=== PATIENT | female | born 1995 | race Caucasian/White ===

== ENCOUNTER → 2019-11-21 16:15 | Outpatient (CLI) | payer OTHER, SELFPAY ==
[2019-11-21 14:47] VITALS: BMI 24.0
[2019-11-21 18:46] LABS: Chlamydia Trachomatis by PCR Negative (Negative); Neisserai gonorrhoeae by PCR Negative (Negative); Probe Check PASS; Sample Adequacy Control PASS; Specimen Processing Control PASS
[2019-11-28 00:35] LABS: HPV Reflexed? NOT INDICATED
== END ==
PROVIDERS: Referring Provider Nurse Practitioner Women's Health; Visit Provider Nurse Practitioner Women's Health
DX: Z12.4 Encounter for screening for malignant neoplasm of cervix (principal); Z11.3 Encounter for screening for infections with a predominantly sexual mode of transmission
CPT/HCPCS: 87491; 87591; 88175; G0145

== ENCOUNTER → 2021-09-24 | Outpatient (CLI) | payer BC, SELFPAY ==
[2021-09-26 01:08] LABS: Chlamydia By Nucleic Acid AMP Negative (Negative)
[2021-09-26 13:46] LABS: Gonococcus By Nucleic Acid AMP Negative (Negative)
== END | disposition home or self-care (01) ==
LOC: LABSPEC 09-25 06:27
PROVIDERS: Referring Provider Obstetrics & Gynecology; Visit Provider Obstetrics & Gynecology
DX: Z34.00 Encounter for supervision of normal first pregnancy, unspecified trimester (principal)
CPT/HCPCS: 87491; 87591

== ENCOUNTER → 2021-09-29 | Outpatient (CLI) | payer BC, SELFPAY ==
[2021-09-29 10:38] LABS: Absolute Lymphocyte Count 0.93 X10^3/uL (0.83-4.51); Basophil# 0.02 X10^3/uL; Basophil% 0.4 % (0-1); Eosinophil# 0.03 X10^3/uL; Eosinophils% 0.6 % (0-5); Hematocrit 37.3 % (37-47); Hemoglobin 12.3 g/dL (12.0-15.0); Lymphocyte # 0.93 X10^3/ul (0.83-4.51); Lymphocyte % 17.5 % (19-41); Mean Corpuscular Hgb 30.1 pg (27.0-32.0); Mean Corpuscular Volume 91.4 fL (81-99); Mean Platelet Vol. 10.9 fl (6.2-12.0); Monocyte# 0.34 X10^3/uL; Monocyte% 6.4 % (0-10); NRBC Flagged by Analyzer 0 % (0-5); Neutrophil # 3.97 X10^3/uL (2.7-7.7); Neutrophil % 74.9 % (47-70); Platelet Count 250 K/mm3 (150-450); RBC Distribution Width CV 12.3 % (11.6-14.6); RBC Distribution Width SD 41.2 fl (35.1-43.9); Red Blood Count 4.08 M/mm3 (4.2-5.4); White Blood Count 5.3 K/mm3 (4.4-11.0)
[2021-09-29 10:54] LABS: NATERA MAILED SPECIMEN
[2021-09-29 12:06] LABS: HIV - WCH Non-Reactive (Nonreactive); Hepatitis B Surface Antigen Non-Reactive (Nonreactive); Hepatitis C Antibody Non-Reactive (Nonreactive); Rubella IgG Reactive (Nonreactive); Syphilis Antibodies Non-reactive
== END | disposition home or self-care (01) ==
LOC: LAB 09:50
PROVIDERS: Referring Provider Obstetrics & Gynecology; Visit Provider Obstetrics & Gynecology
DX: Z34.81 Encounter for supervision of other normal pregnancy, first trimester (principal)
CPT/HCPCS: 36415; 85025; 86703; 86762; 86780; 86803; 86850; 86900; 86901; 87340

== ENCOUNTER → 2021-10-21 | Outpatient (CLI) | payer BC, SELFPAY ==
[2021-10-21 11:22] LABS: Amphetamine Urine VISTA NEGATIVE (<1000 ng/mL); Barbiturate Urine VISTA NEGATIVE (< 200 ng/mL); Benzodiazepine Urine VISTA NEGATIVE (< 200 ng/mL); Cocaine Urine VISTA NEGATIVE (< 300 ng/mL); Ecstacy Urine VISTA NEGATIVE (< 500 ng/mL); Methadone Urine VISTA NEGATIVE (< 300 ng/mL); PCP Urine VISTA NEGATIVE (< 25 ng/mL); THC Urine VISTA NEGATIVE (< 50 ng/mL); Vista UDS pH Range 7
== END | disposition home or self-care (01) ==
LOC: LABSPEC 10-22 09:53
PROVIDERS: Visit Provider Obstetrics & Gynecology
DX: Z34.00 Encounter for supervision of normal first pregnancy, unspecified trimester (principal)
CPT/HCPCS: 80307; 87086; 87088

== ENCOUNTER → 2021-11-18 | Outpatient (CLI) | payer BC, SELFPAY | END | disposition home or self-care (01) | LOC: LABSPEC 12:15 | PROVIDERS: Visit Provider Nurse Practitioner Women's Health | DX: Z34.90 Encounter for supervision of normal pregnancy, unspecified, unspecified trimester (principal) | CPT/HCPCS: 87086; 87088 ==

== ENCOUNTER → 2022-01-01 | Outpatient (CLI) | payer BC, SELFPAY ==
--- NOTE | 2022-01-01 15:33 | US_ITS ---
STUDY: SECOND AND THIRD TRIMESTER OBSTETRICAL ULTRASOUND - LIMITED REASON FOR EXAM: Female, 26 years old. growth and cervical length PRIOR ULTRASOUND: Prior comparison studies are not available for review at this time. TECHNIQUE: Transabdominal and Transvaginal TECHNICAL QUALITY: Adequate. FINDINGS: There is a single intrauterine fetus. The fetus is in a cephalic presentation. There is demonstrated cardiac activity with a heart rate of 160 bpm. There is a normal amniotic fluid volume. The largest amniotic fluid pocket measures 8.7 cm. The placenta is anterior in location and is not low lying. There are Grade 1 placental changes. The cervix measures cm in length: 3.4. BIOMETRY: BPD: 59 mm: 24 weeks, 1 days HC: 229 mm: 25 weeks, 0 days AC: 216 mm: 25 weeks, 0 days FL: 43 mm: 24 weeks, 0 days CI: 77 FL/AC: 20 FL/BPD: 72 HC/AC: 1.13 age by current US: 24 weeks, 2 days. DULCE by current US: 12.6.22. Estimated weight: 702 grams, +/- 107 grams, 47 %. Age by LMP: 24 weeks, 3 days. DULCE by LMP: 12.5.22. US/OB Limited With Biometrics IMPRESSION: There is a single live intrauterine with a heart rate of 160 bpm. age by current US: 24 weeks, 2 days. DULCE by current US: 12.6.22. Estimated weight: 702 grams, +/- 107 grams, 47 %. The cervix measures cm in length: 3.4. Electronically Signed: Malik Harris MD at 16:36 EDT ,
== END | disposition home or self-care (01) ==
PROVIDERS: Referring Provider Obstetrics & Gynecology; Visit Provider Obstetrics & Gynecology
DX: O26.892 Other specified pregnancy related conditions, second trimester (principal); Z3A.24 24 weeks gestation of pregnancy
CPT/HCPCS: 76816

== ENCOUNTER → 2022-01-29 | Outpatient (CLI) | payer BC, SELFPAY ==
[2022-01-29 10:10] LABS: Absolute Lymphocyte Count 1.35 X10^3/uL (0.83-4.51); Absolute Neutrophil Count 7.3 X10^3/uL (2.0-7.7); Basophil# 0.03 X10^3/uL; Basophil% 0.3 % (0-1); Eosinophil# 0.08 X10^3/uL; Eosinophils% 0.9 % (0-5); Hematocrit 36.9 % (37-47); Hemoglobin 12.6 g/dL (12.0-15.0); Lymphocyte # 1.35 X10^3/ul (0.83-4.51); Lymphocyte % 14.4 % (19-41); Mean Corp Hgb Conc 34.1 g/dL (32-36); Mean Corpuscular Hgb 31.8 pg (27.0-32.0); Mean Corpuscular Volume 93.2 fL (81-99); Mean Platelet Vol. 10.5 fl (6.2-12.0); Monocyte# 0.58 X10^3/uL; Monocyte% 6.2 % (0-10); NRBC Flagged by Analyzer 0 % (0-5); Neutrophil # 7.27 X10^3/uL (2.7-7.7); Neutrophil % 77.7 % (47-70); Platelet Count 262 K/mm3 (150-450); RBC Distribution Width CV 12.5 % (11.6-14.6); RBC Distribution Width SD 42.9 fl (35.1-43.9); Red Blood Count 3.96 M/mm3 (4.2-5.4); White Blood Count 9.4 K/mm3 (4.4-11.0)
[2022-01-29 10:27] LABS: Glucose Challenge Gest 1H 50g 77 mg/dL (70-140)
== END | disposition home or self-care (01) ==
LOC: PAVLAB 10:00
PROVIDERS: Referring Provider Obstetrics & Gynecology; Visit Provider Obstetrics & Gynecology
DX: Z13.1 Encounter for screening for diabetes mellitus (principal); Z3A.24 24 weeks gestation of pregnancy
CPT/HCPCS: 36415; 82950; 85025

== ENCOUNTER → 2022-03-23 | Outpatient (CLI) | payer BC, MEDICAID, SELFPAY | END | disposition home or self-care (01) | LOC: LABSPEC 10:48 | PROVIDERS: Referring Provider Nurse Practitioner Women's Health; Visit Provider Nurse Practitioner Women's Health | DX: Z34.90 Encounter for supervision of normal pregnancy, unspecified, unspecified trimester (principal) | CPT/HCPCS: 87077; 87081; 87186 ==

== ENCOUNTER 2022-04-17 18:13 | Inpatient (IN) | payer BC, MEDICAID, SELFPAY ==
[2022-04-17] VITALS (28 sets, daily range): BP systolic 110–128; BP diastolic 56–78; PULSE 76–149; TEMP 36.9–37.1; O2SAT 78–100; BMI 25.8
[2022-04-17] MEDS: Lactated Ringers 1,000 ML 200 ML IV (18:25)
[2022-04-17 18:51] LABS: Absolute Lymphocyte Count 1.52 X10^3/uL (0.83-4.51); Absolute Neutrophil Count 9.5 X10^3/uL (2.0-7.7); Basophil# 0.03 X10^3/uL; Basophil% 0.2 % (0-1); Eosinophil# 0.08 X10^3/uL; Eosinophils% 0.7 % (0-5); Hematocrit 38.9 % (37-47); Hemoglobin 12.9 g/dL (12.0-15.0); Lymphocyte # 1.52 X10^3/ul (0.83-4.51); Lymphocyte % 12.5 % (19-41); Mean Corp Hgb Conc 33.2 g/dL (32-36); Mean Corpuscular Hgb 31.2 pg (27.0-32.0); Mean Corpuscular Volume 94.2 fL (81-99); Mean Platelet Vol. 11.4 fl (6.2-12.0); Monocyte# 1.04 X10^3/uL; Monocyte% 8.6 % (0-10); NRBC Flagged by Analyzer 0 % (0-5); Neutrophil # 9.45 X10^3/uL (2.7-7.7); Neutrophil % 77.7 % (47-70); Platelet Count 232 K/mm3 (150-450); RBC Distribution Width CV 13.4 % (11.6-14.6); RBC Distribution Width SD 45.8 fl (35.1-43.9); Red Blood Count 4.13 M/mm3 (4.2-5.4); White Blood Count 12.2 K/mm3 (4.4-11.0)
[2022-04-17] MEDS: Oxytocin 10 UNITS/ML Vial IM (20:36)
--- NOTE | 2022-04-17 21:15 | HP.PCM.OB_ITS ---
HPI - General General Date of Admission: 04/17/22 HPI Narrative YASSINE ZABALA, is a 27 F who presents IAL 7 cm dilated regular ctx some vb no lof good fm Maternal Data Information DULCE Calculator Estimated Delivery Date Method Current WG Current Estimate 04/20/22 LMP (Certain) 39w 4d Other Estimates 04/22/22 Ultrasound #1 39w 2d PFSH PFSH Home Medications prenat.vits,aron,iaa-umft-rulnx 1 tab PO DAILY 09/08/21 [History Last Taken 04/17/22] Allergy/AdvReac Type Severity Reaction Status Date / Time No Known Allergies Allergy Verified 04/07/22 11:07 Surgical History (Updated 04/17/22 @ 18:56 by Donna Tiwari) Hx of LASIK [place] teeth removed Social History adopted: No household members: spouse number of children: 0 current occupational status: employed 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 labor support person: balwinder michel (tough for him to be in hospitals, medical) labor intervention preferences: none pain management options preferred: open to epidural cut cord/dad catch: no. : yes PP control planned: considering discussed possible routes of delivery and associated risks: [] special requests: [] Plans Covid status: discussed Flu vaccine: discussed Tdap vaccine: declined Rhogam: na LARC form signed: declined movement and labor precautions reviewed. Problem list reviewed and updated with the most current plan of care details and appropriate orders placed. Relevant counseling for the gestational age provided. Continue routine care and follow up unless otherwise noted in visit notes/problem list details OB Flowsheet Initial Weight: Not Recorded Date -?-?-?-?-?-?-?-?-?-?-?-?- EGA Weight BP Urine Prot -?-?-?-?-?-?-?-?-?-?-?-?- Glucose FHR FuHt Pres Dilation -?-?-?-?-?-?-?-?-?-?-?-?- Effaced St Visit Note 09/24/21 -?-?-?-?-?-?-?-?-?-?-?-?- 10w 2d 153 lb 104/74 -?-?-?-?-?-?-?-?-?--?-?-?- 150 -?-?-?-?-?-?-?-?-?-?-?-?- JV- CRL consiste nt with LMP 10/21/21 -?-?-?-?-?-?-?-?-?-?-?-?- 14w 1d 153 lb 2 oz 90/60 Nega tive -?-?-?-?-?-?-?-?-?-?-?-?- Negative 143 -?-?-?-?-?-?-?-?-?-?-?-?- JV- bedside ultr asound performed. pt still nauseated some but no more diarrhea. 11/18/21 -?-?-?-?-?-?-?-?-?-?-?-?- 18w 1d 159 lb 6 oz 108/60 Nega tive -?-?-?-?-?-?-?-?-?-?-?-?- Negative 153 -?-?-?-?-?-?-?-?-?-?-?-?- MH-No Vb, LOF. M FM US 12/0401/01/22 -?-?-?-?-?-?-?-?-?-?-?-?- 24w 3d 165 lb 118/60 Negative -?-?-?-?-?-?-?-?-?-?-?-?- Negative 145 -?-?-?-?-?-?-?-?-?-?-?-?- SM- no vb crampi ng 01/29/22 -?-?-?-?-?-?-?-?-?-?-?-?- 28w 3d 167 lb 109/75 -?-?-?-?-?-?-?-?-?-?-?-?- 155 28 -?-?-?-?-?-?-?-?-?-?-?-?- SM- no vb lof go od fm n oregular ctx cbc gct today 03/06/22 -?-?-?-?-?-?-?-?-?-?-?-?- 33w 4d 176 lb 110/62 Negative -?-?-?-?-?-?-?-?-?-?-?-?- Negative 140 33 Cephalic -?-?-?-?-?-?-?-?-?-?-?-?- SM- no vb of goo d fm no regular ctx. 03/23/22 -?-?-?-?-?-?-?-?-?-?-?-?- 36w 0d 176 lb 6 oz 108/70 Nega tive -?-?-?-?-?-?-?-?-?-?-?-?- Negative 156 36 Cephalic 2 -?-?-?-?-?-?-?-?-?-?-?-?- 50 -3 MH-No LOF. Good FM. No reg CTX. Had small spotting after IC. 03/31/22 -?-?-?-?-?-?-?-?-?-?-?-?- 37w 1d 179 lb 103/67 Negative -?-?-?-?-?-?-?-?-?-?-?-?- Negative 135 36 Cephalic 4 -?-?-?-?-?-?-?-?-?-?-?-?- 70 -1 SM-no vb l of good fm no regular ctx gbs pos 04/07/22 -?-?-?-?-?-?-?-?-?-?-?-?- 38w 1d 179 lb 4 oz 106/62 Nega tive -?-?-?-?-?-?-?-?-?-?-?-?- Negative 140 35 Cephalic 4 -?-?-?-?-?-?-?-?-?-?-?-?- 80 -1 JV- bedsid e scan today shows fuad of 16, hc = 38 weeks, AC = 38 weeks, FL= 40 weeks. pt reassured. may order formal scan if still next week. labor precautions discussed. 04/17/22 -?-?-?-?-?-?-?-?-?-?-?-?- 39w 4d 180 lb 114/77 Negative -?-?-?-?-?-?-?-?-?-?-?-?- Negative 140 38 Cephalic 5 -?-?-?-?-?-?-?-?-?-?-?-?- 90 0 SM- no vb lof good fm no regular ctx 04/17/22 -?-?-?-?-?-?-?-?-?-?-?-?- 39w 4d 180 lb 120/78 128/70 110/58 121/62 -?-?-?-?-?-?-?-?-?-?-?-?- -?-?-?-?-?-?-?-?-?-?-?-?- NST FHR Rate Baby A Baseline: 140 Variability:: Moderate Accelerations:: 15 x 15 Decelerations:: None NST Reactive:: Yes FHR Category:: Category I Uterine Activity:: q3-5 ROS Constitutional Constitutional: Reports systems reviewed and no addt'l complaints, except as documented ENT HEENT: Reports systems reviewed and no addt'l complaints, except as documented Cardiovascular Cardiovascular: Reports systems reviewed and no addt'l complaints, except as documented Respiratory/Chest Respiratory/Chest: Reports systems reviewed and no addt'l complaints, except as documented Gastrointestinal Gastrointestinal: Reports systems reviewed and no addt'l complaints, except as documented and nausea; Denies abdominal pain Genitourinary Genitourinary: Reports systems reviewed and no addt'l complaints, except as documented, contractions Details: present and frequency (regular ) and movement Details: present Musculoskeletal Musculoskeletal: Reports systems reviewed and no addt'l complaints, except as documented Integumentary Integumentary: Reports as per HPI Neurologic Neurologic: Reports systems reviewed and no addt'l complaints, except as documented Endocrine Endocrinology: Reports systems reviewed and no addt'l complaints, except as documented Vital Signs Vital Signs Vital Signs: 04/17/22 18:25 04/17/22 18:25 04/17/22 18:25 Temperature Temperature Source Pulse Rate 82 88 Blood Pressure 120/78 BP Systolic 120 BP Diastolic 78 Pulse Ox 04/17/22 18:25 04/17/22 18:25 04/17/22 18:25 Temperature 98.7 F Temperature Source Temporal Pulse Rate Blood Pressure BP Systolic BP Diastolic Pulse Ox 99 04/17/22 19:15 04/17/22 19:15 04/17/22 19:16 Temperature Temperature Source Pulse Rate 149 H Blood Pressure 128/70 H BP Systolic 128 BP Diastolic 70 Pulse Ox 78 04/17/22 19:16 04/17/22 19:15 04/17/22 21:03 Temperature Temperature Source Pulse Rate 94 102 H Blood Pressure BP Systolic BP Diastolic Pulse Ox 97 04/17/22 21:03 04/17/22 21:05 04/17/22 21:05 Temperature Temperature Source Pulse Rate 109 H Blood Pressure 110/58 L BP Systolic 110 BP Diastolic 58 Pulse Ox 100 04/17/22 21:00 04/17/22 21:00 04/17/22 21:08 Temperature 98.4 F Temperature Source Temporal Pulse Rate 105 H Blood Pressure BP Systolic BP Diastolic Pulse Ox 04/17/22 21:08 04/17/22 21:13 04/17/22 21:13 Temperature Temperature Source Pulse Rate 93 Blood Pressure BP Systolic BP Diastolic Pulse Ox 98 99 Weight Weight: 180 lb Body Mass Index (BMI) 25.8 Physical Exam Const alert, oriented x3 and healthy appearing Constitutional Narrative: uncomfortable with contractions HEENT normocephalic and moist oral mucous membranes Head and Scalp: atraumatic Neck full ROM, no lymphadenopathy, supple and thyroid normal General: trachea midline Thyroid: thyroid normal Lymph Lymphatic: no lymphadenopathy noted Chest inspection of chest normal Resp normal respiratory effort Cardio regular rate GI normal to inspection, nondistended, normoactive bowel sounds, soft to palpation and non-tender Inspection: gravid external exam normal Bimanual Exam - Vag & Uterus: uterus non-tender Manual OB Exam: estimated gestational size appropriate, presentation cephalic, dilated, effaced and station Extremity normal to inspection General Extremity: Negative for edema Skin no rashes or lesions noted Neuro deep tendon reflexes 2+ bilaterally Motor Exam: strength 5/5 throughout and clonus absent Psych mental status grossly normal Labs Labs Labs: Blood Type B POSITIVE Antibody Screen NEGATIVE Hct 38.9 % (37-47) Hgb 12.9 g/dL (12.0-15.0) Obstetrics US Syphilis Total Ab Non-reactive Rubella IgG Antibody Reactive (Nonreactive) Hep Bs Antigen Non-Reactive (Nonreactive) Chlamydia DNA ([facility]) Negative (Negative) Neisseria gonorrhoeae DNA ([facility]) Negative (Negative) HIV 1&2 Antibody Non-Reactive (Nonreactive) Glucose 1 Hr 50 gm 77 mg/dL (70-140) Assessment & Plan (1) : QUALIFIERS: Weeks of gestation: 39 weeks Qualified Code(s): Z3A.39 - 39 weeks gestation of COMMENT: anatomy nl, nl anatomy. declined carrier and ntd screen. NIPT low risk (2) Supervision of normal first : COMMENT: PRR , boy, DULCE 04/20/22 Spouse:Balwinder (3) GBS (group B Streptococcus carrier), +RV culture, currently : COMMENT: PCN in labor (4) Active labor at term: PLAN: Plan Patient presents IAL, plan expectant management for , pitocin/AROM PRN if needed. Pain management: minima lintervention. GBS positive plan IV PCN. Management of any complications: none I have reviewed the [facility] and made any clinically relevant updates.
--- NOTE | 2022-04-17 21:18 | EX.PCM.OBRPT ---
Assessment & Plan (1) Active labor at term: (2) : QUALIFIERS: Weeks of gestation: 39 weeks Qualified Code(s): Z3A.39 - 39 weeks gestation of COMMENT: anatomy nl, nl anatomy. declined carrier and ntd screen. NIPT low risk (3) GBS (group B Streptococcus carrier), +RV culture, currently : COMMENT: PCN in labor (4) Supervision of normal first : COMMENT: PRR , boy, DULCE 04/20/22 Spouse:Joshua (5) Vaginal delivery: COMMENT: IAL SM 39 boy koby Maternal Data Information DULCE Calculator Estimated Delivery Date Method Current WG Current Estimate 04/20/22 LMP (Certain) 39w 4d Other Estimates 04/22/22 Ultrasound #1 39w 2d Vaginal Delivery Operative Information Date of Procedure: 04/17/22 Pre-Operative Diagnosis: IAL Post-Operative Diagnosis: same Surgery / Procedure Performed: Spontaneous Vaginal Delivery Type of Anesthesia: Local with 1% Lidocaine Special Medications: none Estimated Blood Loss: 300 Fluids Replaced: crystalloid Findings Description of Procedure: Patient began pushing and delivered the head in the KAIT presentation. The head was delivered atraumatically . The anterior and posterior shoulders delivered without complication followed by the rest of the and the infant was placed on the maternal abdomen. Delayed cord clamping was employed for approximately 60 seconds. Cord was clamped and cut and gentle traction was applied to the cord and the placenta delivered spontaneously immediately following it was noted to be intact with three-vessel cord. The perineum and vagina were inspected and noted to have a second degree perineal laceration repaired in the usual fashion with 3-0 vicryl rapide. EBL was 300. Patient and tolerated delivery well. Presentation: KAIT Amniotic Membrane Rupture Type: Artificial Amniotic Fluid Description: Clear Placental Delivery Description: Spontaneous Placenta Disposition: [facility] Cord Vessel Description: 3 Vessels Cord Entanglement: None A Gender: Male Delayed Cord Clamping: Yes Post Vaginal Delivery Medications Given After Delivery: - (im pitocin) Episiotomy Description: None Laceration: Perineal Extension/lac and 2nd degree Complication Complications: None Procedures Urinary/Genital [id number]: [id number] Vaginal Delivery [facility]
--- NOTE | 2022-04-17 21:21 | DCINST_ITS ---
Discharge Instructions Diet Discharge Diet: No restrictions Activity Discharge Activity: Return to Normal Activity, May Drive, May Shower and May Take a Tub Bath (in 4 weeks) May resume sexual activity in: 6-8 weeks (after seen by OB provider) Weight Bearing Status: Full weight bearing Lifting Restrictions: none Dressing / Incision Call your doctor if you observe: Fever of 101 or Higher, Inability to urinate, Using more than 1 pad per hour (for more than 2 hours in a row or more), Shortness of breath, Dizziness, Chest pain and - (headache not controlled with tylenol, change in vision) Follow Up Care When: in 6 weeks for visit, call the office to make the appointment. If you had elevated blood pressures call the office to be seen within 1 week. Test Results: Test results from this visit will be discussed in further detail at your follow- up appointment, if applicable. Discharge Plan Admission Admit Date/Time: 04/17/22 18:13 Attending Provider: Adwoa Solano Primary Care Provider: Care Physician,Angelita Primary Discharge Orders/Prescriptions Prescriptions: No Action prenat.vits,aron,[id number]-yrrie Tablet 1 tab PO DAILY Referrals / Follow Up: Care Physician,No Primary [Primary Care Provider] - Disposition Disposition (needs filled in before D/C Order can be placed): Home, Self Care
[2022-04-17] MEDS: Naproxen 500 MG Tablet PO (22:11)
[2022-04-17] MEDS: Acetaminophen 500 MG Tablet 1000 MG PO (23:13)
[2022-04-18] VITALS (11 sets, daily range): BP systolic 103–117; BP diastolic 56–58; PULSE 63–87; RESP 16–17; TEMP 36.3–37; O2SAT 97–98
--- NOTE | 2022-04-18 07:17 | PCM.PN.OB ---
Subjective Subjective Patient doing well without complaints. Tolerating PO. Ambulating and voiding without difficulty. feeding well. Denies chest pain, shortness of breath, calf pain/swelling, fevers, chills, lightheadedness. Objective Data Objective Data Vital Signs: Vital Signs Temp Pulse Resp BP Pulse Ox O2 Del Method 98.6 F 79 16 106/56 L 97 Room Air 04/18/22 02:22 04/18/22 02:22 04/18/22 02:22 04/18/22 02:22 04/18/22 02:22 04/18/22 02:22 Oxygen Delivery Method Room Air Weight: 180 lb Body Mass Index (BMI) 25.8 Intake & Output: Intake and Output for Last 24 Hours 04/16/22 04/17/22 04/18/22 23:59 23:59 23:59 Intake Total 148.33 / 148.33 Balance 148.33 / 148.33 Lab / Micro Data Result Diagrams: 04/17/22 18:25 Labs: Laboratory Results - last 24 hr 04/17/22 18:25: WBC 12.2 H, RBC 4.13 L, Hgb 12.9, Hct 38.9, MCV 94.2, MCH 31.2, MCHC 33.2, RDW Std Deviation 45.8 H, RDW Coeff of [place] 13.4, Plt Count 232, MPV 11.4, Immature Gran % (Auto) 0.300, Neut % (Auto) 77.7 H, Lymph % (Auto) 12.5 L, [place] % (Auto) 8.6, Eos % (Auto) 0.7, Baso % (Auto) 0.2, Absolute Neuts (auto) 9.5 H, Absolute Lymphs (auto) 1.52, Nucleated RBC % 0 04/17/22 18:25: Blood Type B POSITIVE, Antibody Screen NEGATIVE ROS Constitutional Constitutional: Reports systems reviewed and no addt'l complaints, except as documented Cardiovascular Cardiovascular: Reports systems reviewed and no addt'l complaints, except as documented Respiratory/Chest Respiratory/Chest: Reports systems reviewed and no addt'l complaints, except as documented Gastrointestinal Gastrointestinal: Reports systems reviewed and no addt'l complaints, except as documented Physical Exam Const alert, oriented x3 and no apparent distress HEENT Head and Scalp: atraumatic Resp normal respiratory effort GI soft to palpation and non-tender Bimanual Exam - Vag & Uterus: uterus non-tender Uterus Palpation: uterus fundus firm (below Umbilicus) Assessment & Plan (1) Vaginal delivery: COMMENT: IAL SM 39 boy koby PLAN: Plan s/p PPD # 1 1. routine post delivery care 2. breast feeding- support given 3. rh positive 4. rubella immune
[2022-04-18] MEDS: Naproxen 500 MG Tablet PO ×2 (07:19→15:42)
[2022-04-18] MEDS: Acetaminophen 500 MG Tablet 1000 MG PO ×3 (08:21→21:24)
[2022-04-19 02:58] VITALS: BP 105/58; PULSE 68; PULSE 72; RESP 16; TEMP 36.6; O2SAT 97
[2022-04-19] MEDS: Naproxen 500 MG Tablet PO (03:07)
[2022-04-19 07:57] VITALS: BP 121/62; PULSE 80; O2SAT 97
[2022-04-19 08:48] VITALS: BP 121/62; PULSE 80; RESP 14; TEMP 36.6; O2SAT 98
--- NOTE | 2022-04-19 10:01 | PCM.DC.SUM ---
Providers Date of Admission: 04/17/22 Primary Care Physician: Angelita Primary Care Phys Reason For Visit: VAGINAL DELIVERY Diagnosis Discharge Diagnosis (1) Vaginal delivery: Status: Acute Code(s): O80 - Encounter for full-term uncomplicated delivery Medications at Discharge Home Medications prenat.vits,aron,hnn-kvgb-[id number] 1 tab PO DAILY 09/08/21 Hospital Course Operations None Procedures - (vaginal delivery ) Summary of Care Provided Minutes Spent on Discharge: 15 Hospital Course: The patient was admitted on 04/17/22 for active labor. She delivered a viable male infant and recovered well on day#1. On day #2 she was ambulating without difficulty and declining pain medication. She requested discharge to home and was found to be stable. Physical Exam Const alert, oriented x3 and no apparent distress General Appearance: cooperative and comfortable Resp normal respiratory effort Cardio regular rate GI normal to inspection, nondistended, normoactive bowel sounds GI Narrative: uterus is firm below umbilicus Palpation: soft Back/Spine no CVA tenderness and thoraco-lumbar ROM normal Extremity normal to inspection, no clubbing, cyanosis or edema, no calf tenderness and no pedal edema Psych mental status grossly normal, thought process normal, cooperative, affect normal, speech normal, activity/motor behavior normal, denies homicidal ideation and denies suicidal ideation Weight / BMI Weight Weight: 180 lb Body Mass Index (BMI) 25.8 ABG / Lab / Microbiology Data Result Diagrams: 04/17/22 18:25 D/C Instructions Discharge Diet: No restrictions May resume sexual activity in: 6-8 weeks (after seen by OB provider) Weight Bearing Status: Full weight bearing Call your doctor if you observe: Fever of 101 or Higher, Inability to urinate, Using more than 1 pad per hour (for more than 2 hours in a row or more), Shortness of breath, Dizziness, Chest pain and - (headache not controlled with tylenol, change in vision) When: in 6 weeks for visit, call the office to make the appointment. If you had elevated blood pressures call the office to be seen within 1 week. Meaningful Use Info Meaningful Use Diagnoses (Choose all that apply): None applicable Discharge Plan Admission Admit Date/Time: 04/17/22 18:13 Primary Reason for Your Visit: vaginal delivery Attending Provider: Adwoa Solano Primary Care Provider: Care Physician,No Primary Discharge Orders/Prescriptions Prescriptions: No Action prenat.vits,aron,eff-yhfn-wniva Tablet 1 tab PO DAILY Referrals / Follow Up: Care Physician,No Primary [Primary Care Provider] - Disposition Disposition (needs filled in before D/C Order can be placed): Home, Self Care
== END 2022-04-19 10:35 | disposition home or self-care (01) | DRG 807 ==
PROVIDERS: Admitting Provider Obstetrics & Gynecology; Visit Provider Obstetrics & Gynecology
DX: O70.1 Second degree perineal laceration during delivery (principal); Z37.0 Single live birth; O99.824 Streptococcus B carrier state complicating childbirth; Z3A.39 39 weeks gestation of pregnancy
CPT/HCPCS: 59025; 59050; 85025; 86850; 86900; 86901; 99218; J7120; G0378

== ENCOUNTER → 2022-05-28 | Outpatient (CLI) | payer BC, MEDICAID, SELFPAY ==
[2022-06-02 20:59] LABS: HPV Reflexed? NOT INDICATED
== END | disposition home or self-care (01) ==
LOC: LABSPEC 17:04
PROVIDERS: Visit Provider Obstetrics & Gynecology
DX: Z12.4 Encounter for screening for malignant neoplasm of cervix (principal)
CPT/HCPCS: 88175; G0145

== ENCOUNTER → 2022-12-03 | Outpatient (CLI) | payer BC, MEDICAID, SELFPAY ==
--- NOTE | 2022-12-03 10:17 | US_ITS ---
INDICATION: IUD placement EXAMINATION: Ultrasound US Pelvis Non OB Complete With Transvaginal Imaging TECHNIQUE: Transabdominal and transvaginal pelvic ultrasound was performed. Grayscale, spectral waveform, and color flow Doppler evaluation of the adnexa. COMPARISON: FINDINGS: UTERUS: Anteverted. The uterus measures 6.3 x 4.0 x 2.2 cm. There is no uterine mass. The endometrial stripe measures 2 mm in AP diameter which is within normal limits. RIGHT OVARY: Measures 3.6 x 2.0 x 2.5 cm . Non-enlarged, normal echogenicity. There is normal arterial inflow and venous outflow present in the right ovary. LEFT OVARY: Measures 3.6 x 1.9 x 2.2 cm. Non-enlarged, normal echogenicity. There is normal arterial inflow and venous outflow present in the left ovary. FREE FLUID: There is a trace amount of fluid in the endometrial canal at the fundus.. An intrauterine device is identified grossly in position. US/Pelvic (Non ) IMPRESSION: IUD identified. Trace free fluid in the endometrial canal. Otherwise unremarkable ultrasound of the pelvis. Electronically Signed: Higinio Chairez, at 11:53 EDT ,
--- NOTE | 2022-12-03 11:03 | US_ITS ---
INDICATION: IUD placement EXAMINATION: Ultrasound US Pelvis Non OB Complete With Transvaginal Imaging TECHNIQUE: Transabdominal and transvaginal pelvic ultrasound was performed. Grayscale, spectral waveform, and color flow Doppler evaluation of the adnexa. COMPARISON: FINDINGS: UTERUS: Anteverted. The uterus measures 6.3 x 4.0 x 2.2 cm. There is no uterine mass. The endometrial stripe measures 2 mm in AP diameter which is within normal limits. RIGHT OVARY: Measures 3.6 x 2.0 x 2.5 cm . Non-enlarged, normal echogenicity. There is normal arterial inflow and venous outflow present in the right ovary. LEFT OVARY: Measures 3.6 x 1.9 x 2.2 cm. Non-enlarged, normal echogenicity. There is normal arterial inflow and venous outflow present in the left ovary. FREE FLUID: There is a trace amount of fluid in the endometrial canal at the fundus.. An intrauterine device is identified grossly in position. US/Transvaginal Non- IMPRESSION: IUD identified. Trace free fluid in the endometrial canal. Otherwise unremarkable ultrasound of the pelvis. Electronically Signed: Higinio Chairez, at 11:53 EDT ,
== END | disposition home or self-care (01) ==
LOC: US 10:16
PROVIDERS: Referring Provider Obstetrics & Gynecology; Visit Provider Obstetrics & Gynecology
DX: Z30.431 Encounter for routine checking of intrauterine contraceptive device (principal)
CPT/HCPCS: 76830; 76856